=== PATIENT | male | born 1945 | race Caucasian/White ===

== ENCOUNTER 2017-10-01 18:06 | Inpatient (IN) | payer OTHER ==
[~2017-10-01] VITALS: Ht 177.8 cm; Wt 109.9 kg
[~2017-10-01 18:06] MED LIST: COR3 PO; COZ25 PO; GLU5 PO; GLU500 PO; L40 PO; LOM PO; MECLIZINE HYDRO25 M1 PO; NIT0.4 SL; PLA75 PO; ZOC20 PO
[2017-10-01 19:56] LABS: CALCIUM 8.8 mg/dL (8.5-10.1); CARBON DIOXIDE 29.2 mmol/L (21-32); CHLORIDE SERUM 98 mmol/L (98-107); CREATININE SERUM 1.2 mg/dL (0.7-1.3); GLUCOSE SERUM 106 mg/dL (74-106); POTASSIUM SERUM 4.2 mmol/L (3.5-5.1); SODIUM SERUM 138 mmol/L (136-145)
[2017-10-01 20:01] LABS: ALBUMIN 4.1 g/dL (3.4-5.0); ALKALINE PHOSPHATASE 92 U/L (46-116); ALT/SGPT 20 U/L (16-63); AST/SGOT 19 U/L (15-37); BILIRUBIN TOTAL 1.87 mg/dL (0.20-1.00); TOTAL PROTEIN, SERUM 7.4 g/dL (6.4-8.2)
[2017-10-01 21:01] LABS: BASOPHIL % 0.4 % (0-2); PLATELET COUNT 132 x10^3mcL (130-400)
[2017-10-01 21:02] LABS: RED CELL DISTRIBUTION WIDTH 18.7 % (11.5-14.5)
[2017-10-01 21:05] LABS: microscopic required? YES; urine erythrocyte TRACE (NEGATIVE)
[2017-10-01] MEDS ORDERED: ZOCOR40 MG PO (21:24)
[2017-10-01] MEDS ORDERED: METFORMIN HCL1000 MG PO (21:24)
[2017-10-01] MEDS ORDERED: MECLIZINE HYDRO25 M1 PO (21:24)
[2017-10-01] MEDS ORDERED: CLOPIDOGREL75 M1 PO (21:25)
[2017-10-01] MEDS ORDERED: GLIPIZIDE5 M2 PO (21:25)
[2017-10-01] MEDS ORDERED: NITROSTAT0.4 MG SL (21:25)
[2017-10-01] MEDS ORDERED: FUROSEMIDE40 MG PO (21:25)
[2017-10-01 21:51] LABS: PHOSPHOROUS 4.3 mg/dL (2.5-4.9)
[2017-10-01 21:52] LABS: CHOLESTEROL/HDL RATIO 2.1
[2017-10-01 22:00] LABS: FREE T4 1.15 ng/dL (0.76-1.46); FREE THYROXINE INDEX 2.5 ug/dL (1.4-4.5); T4(THYROXINE) 6.7 ug/dL (4.7-13.3)
[2017-10-01 22:02] VITALS: BP 131/87
[2017-10-01 22:12] VITALS: Ht 177.8 cm; Wt 109.9 kg
[2017-10-02 01:26] LABS: T3 TOTAL 0.85 ng/mL
[2017-10-02 05:46] VITALS: BP 101/68
[2017-10-02 07:24] LABS: BASOPHIL % 0.5 % (0-2)
[2017-10-02 07:28] LABS: PLATELET COUNT 117 x10^3mcL (130-400); RED CELL DISTRIBUTION WIDTH 18.1 % (11.5-14.5)
[2017-10-02 07:39] LABS: CALCIUM 8.2 mg/dL (8.5-10.1); CARBON DIOXIDE 30.1 mmol/L (21-32); CHLORIDE SERUM 98 mmol/L (98-107); CREATININE SERUM 1.2 mg/dL (0.7-1.3); GLUCOSE SERUM 75 mg/dL (74-106); POTASSIUM SERUM 4.3 mmol/L (3.5-5.1); SODIUM SERUM 137 mmol/L (136-145)
[2017-10-02 09:51] VITALS: BP 136/87
[2017-10-02 12:10] VITALS: BP 106/70
[2017-10-02 16:29] VITALS: BP 108/70
[2017-10-02 21:02] VITALS: BP 108/70
[2017-10-03 05:46] LABS: BASOPHIL % 0.7 % (0-2)
[2017-10-03 05:58] LABS: CALCIUM 8.6 mg/dL (8.5-10.1); CHLORIDE SERUM 99 mmol/L (98-107); CREATININE SERUM 1.3 mg/dL (0.7-1.3); GLUCOSE SERUM 89 mg/dL (74-106); MAGNESIUM 1.9 mg/dL (1.8-2.4); SODIUM SERUM 139 mmol/L (136-145)
[2017-10-03 06:32] VITALS: BP 115/71
[2017-10-03 07:05] LABS: PLATELET COUNT 115 x10^3mcL (130-400); RED CELL DISTRIBUTION WIDTH 18.6 % (11.5-14.5)
[2017-10-03 09:20] VITALS: BP 97/62
[2017-10-03 13:55] VITALS: BP 113/72
[2017-10-03 17:08] VITALS: BP 116/73
[2017-10-03 21:28] VITALS: BP 122/76
[2017-10-04 05:34] VITALS: BP 105/69
[2017-10-04 06:10] LABS: BASOPHIL % 0.5 % (0-2)
[2017-10-04 06:35] LABS: CALCIUM 8.7 mg/dL (8.5-10.1); CARBON DIOXIDE 32.5 mmol/L (21-32); CHLORIDE SERUM 99 mmol/L (98-107); CREATININE SERUM 1.3 mg/dL (0.7-1.3); GLUCOSE SERUM 85 mg/dL (74-106); PHOSPHOROUS 5.6 mg/dL (2.5-4.9); POTASSIUM SERUM 4.6 mmol/L (3.5-5.1); SODIUM SERUM 139 mmol/L (136-145)
[2017-10-04 06:49] LABS: PLATELET COUNT 128 x10^3mcL (130-400); RED CELL DISTRIBUTION WIDTH 17.8 % (11.5-14.5)
[2017-10-04 06:50] LABS: rbc morphology (normal/abnorm) ABNORMAL (NORMAL)
[2017-10-04 09:00] VITALS: BP 110/75
[2017-10-04 13:12] VITALS: BP 90/58
[2017-10-04 17:53] VITALS: BP 106/71
[2017-10-04 21:58] VITALS: BP 104/71
[2017-10-05 05:56] VITALS: BP 105/73
[2017-10-05 07:14] LABS: BASOPHIL % 0.5 % (0-2); PLATELET COUNT 135 x10^3mcL (130-400)
[2017-10-05 07:24] LABS: RED CELL DISTRIBUTION WIDTH 18.1 % (11.5-14.5)
[2017-10-05 07:37] LABS: CALCIUM 8.8 mg/dL (8.5-10.1); CARBON DIOXIDE 29.1 mmol/L (21-32); CHLORIDE SERUM 97 mmol/L (98-107); CREATININE SERUM 1.5 mg/dL (0.7-1.3); GLUCOSE SERUM 89 mg/dL (74-106); MAGNESIUM 2.1 mg/dL (1.8-2.4); PHOSPHOROUS 5.9 mg/dL (2.5-4.9); POTASSIUM SERUM 5.1 mmol/L (3.5-5.1); SODIUM SERUM 136 mmol/L (136-145)
[2017-10-05 10:00] VITALS: BP 91/62
[2017-10-05 12:25] VITALS: BP 107/73
[2017-10-05] MEDS ORDERED: L40 PO (13:31)
[2017-10-05] MEDS ORDERED: COR3 PO (13:32)
[2017-10-05] MEDS ORDERED: ALDACTONE25 MG PO (13:33)
[2017-10-05] MEDS ORDERED: CLEOCIN HCL300 MG PO (17:40)
[2017-10-05] MEDS ORDERED: CEFDINIR300 M1 PO (17:45)
[2017-10-05] MEDS ORDERED: LAC PO (17:45)
[2017-10-05 18:05] VITALS: BP 122/85
[2017-10-05 20:00] VITALS: BP 122/85
== END 2017-10-05 21:00 | disposition home health service (06) | DRG 291 ==
LOC: ED 18:06 → DU 20:55 → MU 10-05 10:35
PROVIDERS: Emergency Medicine; Family Medicine
DX: I13.0 Hypertensive heart and chronic kidney disease with heart failure and stage 1 through stage 4 chronic kidney disease, or unspecified chronic kidney disease (principal); I50.43 Acute on chronic combined systolic (congestive) and diastolic (congestive) heart failure; N17.0 Acute kidney failure with tubular necrosis; N39.0 Urinary tract infection, site not specified; A52.16 Charcot's arthropathy (tabetic); L03.116 Cellulitis of left lower limb; I42.0 Dilated cardiomyopathy; I25.10 Atherosclerotic heart disease of native coronary artery without angina pectoris; I25.2 Old myocardial infarction; Z53.29 Procedure and treatment not carried out because of patient's decision for other reasons; N18.9 Chronic kidney disease, unspecified; E11.22 Type 2 diabetes mellitus with diabetic chronic kidney disease; I44.7 Left bundle-branch block, unspecified; E78.5 Hyperlipidemia, unspecified; E11.65 Type 2 diabetes mellitus with hyperglycemia; E02 Subclinical iodine-deficiency hypothyroidism; Z95.5 Presence of coronary angioplasty implant and graft; Z68.38 Body mass index [BMI] 38.0-38.9, adult; Z79.84 Long term (current) use of oral hypoglycemic drugs; Z79.899 Other long term (current) drug therapy
CPT/HCPCS: 36600; 82962; 83880; 84439; 94150; 97110-GP; 97535-GP; G0378; J0696; J1940; J3490; J7050; J7613; J7620; J7644; J8597; Q0092

== ENCOUNTER 2019-01-18 08:28 | Emergency (ER) | payer OTHER ==
[~2019-01-18] VITALS: Ht 177.8 cm; Wt 113.4 kg
[~2019-01-18 08:28] MED LIST changes: +ALDACTONE25 MG PO; +CEFDINIR300 M1 PO; +CLEOCIN HCL300 MG PO; +CLOPIDOGREL75 M1 PO; +FUROSEMIDE40 MG PO; +GLIPIZIDE5 M2 PO; +LAC PO; +METFORMIN HCL1000 MG PO; +NITROSTAT0.4 MG SL; +ZOCOR40 MG PO
[2019-01-18] MEDS ORDERED: METFORMIN HYDR500 M1 (08:59)
[2019-01-18] MEDS ORDERED: MECLIZINE HYDRO25 M1 (08:59)
[2019-01-18] MEDS ORDERED: SIMVASTATIN40 M1 (09:00)
[2019-01-18] MEDS ORDERED: FUROSEMIDE40 MG (09:00)
[2019-01-18] MEDS ORDERED: NITROSTAT0.4 MG (09:00)
[2019-01-18] MEDS ORDERED: CLOPIDOGREL75 M1 (09:00)
[2019-01-18 09:06] LABS: BASOPHIL % 0.9 % (0-2); PLATELET COUNT 145 x10^3mcL (130-400)
[2019-01-18] MEDS ORDERED: SANOINT TP (09:06)
[2019-01-18 09:29] LABS: ALBUMIN 3.9 g/dL (3.4-5.0); ALKALINE PHOSPHATASE 80 U/L (46-116); ALT/SGPT 25 U/L (16-63); AST/SGOT 24 U/L (15-37); BILIRUBIN TOTAL 2.2 mg/dL (0.20-1.00); CALCIUM 9.7 mg/dL (8.5-10.1); CHLORIDE SERUM 99 mmol/L (98-107); CREATININE SERUM 1.6 mg/dL (0.7-1.3); GLUCOSE SERUM 93 mg/dL (74-106); POTASSIUM SERUM 4.7 mmol/L (3.5-5.1); SODIUM SERUM 138 mmol/L (136-145); TOTAL PROTEIN, SERUM 7.5 g/dL (6.4-8.2)
[2019-01-18 09:55] LABS: RED CELL DISTRIBUTION WIDTH 22.3 % (11.5-14.5)
[2019-01-18 14:52] VITALS: BP 107/83
== END 2019-01-18 14:52 | disposition short-term general hospital (02) ==
LOC: ED 08:28
PROVIDERS: Emergency Medicine
DX: I11.0 Hypertensive heart disease with heart failure (principal); I50.21 Acute systolic (congestive) heart failure; I50.31 Acute diastolic (congestive) heart failure; R09.02 Hypoxemia; J90 Pleural effusion, not elsewhere classified; L97.519 Non-pressure chronic ulcer of other part of right foot with unspecified severity; E11.9 Type 2 diabetes mellitus without complications; I25.10 Atherosclerotic heart disease of native coronary artery without angina pectoris; I25.2 Old myocardial infarction; Z95.818 Presence of other cardiac implants and grafts
CPT/HCPCS: 82962; 83880; J1940; Q0092